=== PATIENT | female | born 1980 | race Caucasian/White ===

== ENCOUNTER 2016-08-24 20:39 | Emergency (ER) | payer MEDICAID ==
[2016-08-24 20:45] VITALS: BP 116/70; BMI 33.3
[2016-08-24 21:16] LABS: BILIRUBIN,URINE NEGATIVE (NEGATIVE); BLOOD/HEMOGLOBIN,URINE 5+ (NEGATIVE); GLUCOSE, URINE NEGATIVE (NEGATIVE); KETONES,URINE NEGATIVE (NEGATIVE); LEUKOCYTE ESTERASE ,URINE 1+ (NEGATIVE); NITRITES,URINE NEGATIVE (NEGATIVE); PH,URINE 6.5 (5.0 - 8.0); PROTEIN,URINE NEGATIVE (NEGATIVE); UROBILINOGEN,URINE NORMAL (NORMAL)
[2016-08-24 21:27] LABS: APPEARANCE,URINE SLIGHTLY HAZY (CLEAR); BACTERIA,URINE 1+ /HPF (NEGATIVE); COLOR,URINE YELLOW (YELLOW); MUCUS,URINE FEW /HPF (NEGATIVE); SQUAMOUS EPITHELIAL CELL,UR FEW /HPF (NEGATIVE)
--- NOTE | 2016-08-24 21:32 | DR.GENAD ---
HPI - PCP Primary Care Physician: Traci - Complaint/Symptoms Chief Complaint:: "I got my tubes tied 4 years ago and I missed my period this week. I started bleeding a little and I took a test. It showed a small line that could possibly be positive." - Nurses notes reviewed Nurses Notes Review: Yes - Source History Provided: Patient - Mode of Arrival Mode of Arrival: Ambulatory - Timing Onset of Chief Complaint: 08/18/16 Came on: Gradually - Duration Duration: Intermittent Duration: Days - Location Location: pelvis - Severity Severity: Mild - Modifying Factors Worsens:: unknown - Associated Signs and Symptoms Associated Signs and Symptoms: abnormal period PMH - PMH Past Medical History: Yes Past Medical History: Anxiety, COPD Past Surgical History: Yes Surgical History: [employer] Surgery, Tonsillectomy - Family History History of Family Medical Conditions: Yes Family Medical History: Diabetes Mellitus, Hypertension - Social History Does patient currently use any type of tobacco product: Yes Have you used tobacco products in the last 12 months: No Type of Tobacco Use: Cigarettes How many years tobacco product used: 22 Does any household member use tobacco: Yes Alcohol Use: None Do you use any recreational Drugs:: No Lives With: Spouse Lives Where: Home - infectious screening In the last 2 months have you had wt loss of >10#?: NO Have you had fever, night sweats or hemotysis?: No Have you traveled outside the country in the last 6 months?: No Isolation: Standard ROS - Review of Systems Constitutional: No Symptoms Reported Eyes: No Symptoms Reported ENTM: No Symptoms Reported Respiratoy: No Symptoms Reported Cardiovascular: No Symptoms Reported Gastrointestinal/Abdominal: No Symptoms Reported Genitourinary: No Symptoms Reported (period), Bleeding Neurological: No Symptoms Reported Musculoskeletal: No Symptoms Reported Integumentary: No Symptoms Reported Hematologic/Lymphatic: No Symptoms Reported Endocrine: No Symptoms Reported Psychiatric: No Symptoms Reported PE - Vital Signs Vitals: Temperature 99.9 F Pulse Rate 77 Respiratory Rate 18 Blood Pressure 116/70 O2 Sat by Pulse Oximetry 99 ROR - Labs Reviewed Laboratory: Specimen Type Clean catch urine 08/24/16 21:02 Urine Color Yellow (YELLOW) 08/24/16 21:02 Urine Appearance Slightly hazy (CLEAR) 08/24/16 21:02 Urine pH 6.5 (5.0 - 8.0) 08/24/16 21:02 Ur Specific Mobile 1.020 (1.000-1.030) 08/24/16 21:02 Urine Protein Negative (NEGATIVE) 08/24/16 21:02 Urine Glucose (UA) Negative (NEGATIVE) 08/24/16 21:02 Urine Ketones Negative (NEGATIVE) 08/24/16 21:02 Urine Occult Blood 5+ (NEGATIVE) 08/24/16 21:02 Urine Nitrite Negative (NEGATIVE) 08/24/16 21:02 Urine Bilirubin Negative (NEGATIVE) 08/24/16 21:02 Urine Urobilinogen Normal (NORMAL) 08/24/16 21:02 Ur Leukocyte Esterase 1+ (NEGATIVE) 08/24/16 21:02 Urine RBC 6-8 /HPF (NEGATIVE) 08/24/16 21:02 Urine WBC 10-15 /HPF (NEGATIVE) 08/24/16 21:02 Ur Squamous Epith Cells Few /HPF (NEGATIVE) 08/24/16 21:02 Urine Bacteria 1+ /HPF (NEGATIVE) 08/24/16 21:02 Urine Mucus Few /HPF (NEGATIVE) 08/24/16 21:02 Ur Culture Indicated? Yes/culture set up 08/24/16 21:02 - Diagnosis Discharge Problem: UTI (urinary tract infection) - Discharge Plan Disposition: 01 HOME, SELF-CARE Condition: Stable Prescriptions: Nitrofurantoin Macrocrystal [Macrodantin] 100 mg PO BID #14 cap - Follow ups/Referrals Follow ups/Referrals: ELISABET PELAEZ [Primary Care Provider] - 3 days - Instructions Instructions: Urinary Tract Infection
[2016-08-24 22:21] LABS: SERUM PREGNANCY TEST, QUAL NEGATIVE <10 mIU/mL
[2016-08-24] MEDS ORDERED: MACROBID CAP 100 MG EXT REL PO ONE ×2 (22:39→22:40)
== END 2016-08-24 22:49 | disposition home or self-care (01) ==
LOC: ER 20:50
DX: N39.0 Urinary tract infection, site not specified (principal)
CPT/HCPCS: 36415; 81001; 84703; 87086; 99282